=== PATIENT | male | born 1985 | race Two or more races ===

== ENCOUNTER 2018-11-07 11:04 | Day surgery (SDC) | payer MEDICARE, MEDICAID ==
[~2018-11-07] VITALS: Ht 177.8 cm; Wt 102.0 kg
[2018-11-07] MEDS ORDERED: SODIUM CHLORIDE 0.9% 1,000 ML IV SCH (12:10)
[2018-11-07] MEDS ORDERED: PLEASE ENTER HEIGHT AND WEIGHT MC SCH (12:30)
[2018-11-07 12:34] VITALS: BP 177/96
[2018-11-07] MEDS ORDERED: LOSA1TAB25 PO (12:46)
[2018-11-07] MEDS ORDERED: METO25TA35 PO (12:46)
[2018-11-07] MEDS ORDERED: VENL150C PO (12:46)
[2018-11-07] MEDS ORDERED: MINO2.5T PO (12:46)
[2018-11-07] MEDS ORDERED: TERA2CAP3 PO (12:46)
[2018-11-07] MEDS ORDERED: SITA25TA PO (12:46)
[2018-11-07] MEDS ORDERED: GLYB2.5T2 PO (12:46)
[2018-11-07] MEDS ORDERED: ATOR40TA78 PO (12:46)
[2018-11-07] MEDS ORDERED: ALBUTEROL INH (12:47)
[2018-11-07] MEDS ORDERED: LORA10CA PO (12:48)
[2018-11-07] MEDS ORDERED: DEXTROSE 5% 100 ML ONE (13:58)
[2018-11-07] MEDS ORDERED: LABETALOL 5MG/ML, 20ML IV PRN (14:00)
[2018-11-07] MEDS ORDERED: FENTANYL PF 100 MCG/2ML IV PRN (14:00)
[2018-11-07] MEDS ORDERED: PROMETHAZINE 25 MG/ML, 1ML IV PRN (14:00)
[2018-11-07] MEDS ORDERED: ONDANSETRON 2MG/ML, 2ML IV PRN (14:00)
[2018-11-07] MEDS ORDERED: ONDANSETRON ODT 8 MG PO PRN (14:00)
[2018-11-07] MEDS ORDERED: PROMETHAZINE 25 MG SUPP PR PRN (14:00)
[2018-11-07] MEDS ORDERED: OXYcodone 5 MG/5 ML ORAL.SOL UDC PO PRN (14:00)
[2018-11-07] MEDS ORDERED: hydrALAzine 20 MG/ML, 1ML IV PRN (14:00)
[2018-11-07] MEDS ORDERED: HYDROmorphone 2 MG/ML, 1ML IVPush PRN (14:00)
[2018-11-07] MEDS ORDERED: ACETAMINOPHEN 325 MG TABLET PO PRN (14:00)
[2018-11-07] MEDS ORDERED: CEFAZOLIN 1,000 MG ONE (14:02)
[2018-11-07] MEDS ORDERED: ONDANSETRON 2MG/ML, 2ML ONE (14:02)
[2018-11-07] MEDS ORDERED: PROPOFOL 10 MG/ML, 20ML ONE (14:02)
[2018-11-07] MEDS ORDERED: DEXAMETHASONE 4 MG/ML, 1ML ONE (14:02)
[2018-11-07] MEDS ORDERED: HEPARIN 1,000 UNITS/ML, 10ML IV ONE (14:14)
[2018-11-07] MEDS ORDERED: DEXTROSE 50%, 50ML SYRINGE IVPush ONE (15:00)
== END 2018-11-07 16:58 | disposition home or self-care (01) ==
LOC: OUT 11:04
PROVIDERS: ATTEND Surgery Vascular Surgery
DX: E11.22 Type 2 diabetes mellitus with diabetic chronic kidney disease (principal); I12.0 Hypertensive chronic kidney disease with stage 5 chronic kidney disease or end stage renal disease; N18.6 End stage renal disease
CPT/HCPCS: 36415; 36821; 82962; 93005; J0690; J1100; J1644; J2250; J2405; J2704; J3010; J7030